=== PATIENT | female | born 1945 | race Caucasian/White ===

== ENCOUNTER 2017-02-21 18:55 | Inpatient (IN) | payer MEDICARE ==
[~2017-02-21] VITALS: Ht 165.1 cm; Wt 63.5 kg
[~2017-02-21 18:55] MED LIST: ASPIRIN81 MG PO; CATAPRES 0.1MG0.1 MG PO; COREG 12.5MG12.5 MG PO; COZAAR100 MG PO; DESYREL 50 MG T50 MG PO; NEURONTIN 100100 MG PO; NORVASC 5 MG TAB5 MG PO; PLAVIX 75 MG TA75 MG PO; PROCARDIA XL 6060 MG PO; PROTONIX 40 MG40 M1 PO; TRANDATE 300 M300 MG PO
[2017-02-21] MEDS ORDERED: SPIRIVA18 MCG INH (23:05)
[2017-02-21] MEDS ORDERED: FERROUS SULFAT325 M2 PO (23:06)
[2017-02-21] MEDS ORDERED: COZAAR100 MG PO (23:06)
[2017-02-21] MEDS ORDERED: AMLODIPINE BESY10 MG PO (23:07)
[2017-02-21] MEDS ORDERED: CALCIUM ACETAT667 M1 PO (23:07)
[2017-02-22 02:51] LABS: HEMOGLOBIN 8.8 gm/dl (12.3-15.3); RED BLOOD COUNT 3.01 M/UL (4.00-5.10); WHITE BLOOD COUNT 8.1 K/UL (4.5-11.0)
[2017-02-23 03:21] LABS: HEMOGLOBIN 9.1 gm/dl (12.3-15.3); RED BLOOD COUNT 3.16 M/UL (4.00-5.10)
[2017-02-23 03:23] LABS: WHITE BLOOD COUNT 10.9 K/UL (4.5-11.0)
[2017-02-24 04:29] LABS: HEMOGLOBIN 9.8 gm/dl (12.3-15.3); RED BLOOD COUNT 3.33 M/UL (4.00-5.10); WHITE BLOOD COUNT 9.7 K/UL (4.5-11.0)
[2017-02-26 05:36] LABS: HEMOGLOBIN 9.6 gm/dl (12.3-15.3); RED BLOOD COUNT 3.29 M/UL (4.00-5.10); WHITE BLOOD COUNT 15.8 K/UL (4.5-11.0)
[2017-02-27 05:42] LABS: HEMOGLOBIN 12.9 gm/dl (12.3-15.3); RED BLOOD COUNT 4.18 M/UL (4.00-5.10); WHITE BLOOD COUNT 11.1 K/UL (4.5-11.0)
[2017-02-28] MEDS ORDERED: MEDROL DOSEPAK 24 MG PO ×2 (17:03→17:07)
[2017-02-28] MEDS ORDERED: PHENERGAN 25 MG25 M1 PO (17:04)
[2017-02-28] MEDS ORDERED: COMBIVENT0.074 GM/I INH (17:04)
[2017-02-28] MEDS ORDERED: VENTOLIN/PROVE0.5 ML INH (17:04)
[2017-02-28] MEDS ORDERED: FLOVENT 440.088 GM/I INH (17:04)
[2017-02-28] MEDS ORDERED: NEPHROCAPS SOFTG1 MG PO (17:05)
[2017-02-28] MEDS ORDERED: HYDRALAZINE HCL50 MG PO (17:05)
[2017-02-28] MEDS ORDERED: ADVAIR 250-501 EACH INH (17:07)
[2017-02-28] MEDS ORDERED: ENSURE ORIGINA237 ML PO (17:07)
[2017-02-28] MEDS ORDERED: PROCRIT10000 UNIT INJ (17:17)
--- NOTE | 2017-03-01 10:25 | NUR ---
WE HAVE TRIED MULT TIMES TO CONTACT DAUGHTER GARRY WITH NO ANSWER OR RETURN CALL. WENDY WITH CASE MANAGEMENT HAS ALSO CALLED MULT TIMES AND LEFT MESSAGES WITH NO RETURN CALL. I HEARD THE PATIENT'S PHONE RINGING IN HER ROOM AND IT HAPPENED TO BE GARRY TRYING TO CALL THE PATIENT. WENDY AND I EXPLAINED TO HER THAT [employer] WAS DISCHARGED YESTERDAY AND WE NEEDED TO KNOW WHEN SHE COULD COME AND PICK HER UP. SHE SAID SHE WOULDN'T BE ABLE TO TAKE HER TO DIALYSIS TODAY AND SHE WOULDN'T BE ABLE TO PICK HER UP UNTIL LATER THIS AFTERNOON OR EVENING.
== END 2017-03-02 10:23 | disposition home or self-care (01) | DRG 291 ==
LOC: PROG CARE 18:55 → M/S 21:44 → PROG CARE 21:44 → M/S 02-24 19:00
PROVIDERS: Internal Medicine; Internal Medicine Nephrology; ADMIT Family Medicine
PROC: 5A1D60Z (ICD-10-PCS; principal; 2017-02-24)
DX: I13.2 Hypertensive heart and chronic kidney disease with heart failure and with stage 5 chronic kidney disease, or end stage renal disease (principal); I50.33 Acute on chronic diastolic (congestive) heart failure; N18.6 End stage renal disease; J44.1 Chronic obstructive pulmonary disease with (acute) exacerbation; J96.10 Chronic respiratory failure, unspecified whether with hypoxia or hypercapnia; I95.2 Hypotension due to drugs; E87.5 Hyperkalemia; E11.22 Type 2 diabetes mellitus with diabetic chronic kidney disease; E11.65 Type 2 diabetes mellitus with hyperglycemia; F17.210 Nicotine dependence, cigarettes, uncomplicated; Z91.14 Patient's other noncompliance with medication regimen; Z99.2 Dependence on renal dialysis; Z99.81 Dependence on supplemental oxygen; I73.9 Peripheral vascular disease, unspecified; Z95.820 Peripheral vascular angioplasty status with implants and grafts; I16.0 Hypertensive urgency; R07.9 Chest pain, unspecified; K94.29 Other complications of gastrostomy; Y83.3 Surgical operation with formation of external stoma as the cause of abnormal reaction of the patient, or of later complication, without mention of misadventure at the time of the procedure; Y92.009 Unspecified place in unspecified non-institutional (private) residence as the place of occurrence of the external cause; D63.1 Anemia in chronic kidney disease; R77.8 Other specified abnormalities of plasma proteins; I27.2 Other secondary pulmonary hypertension; R53.81 Other malaise; Z91.11 Patient's noncompliance with dietary regimen; Z79.82 Long term (current) use of aspirin; Z79.899 Other long term (current) drug therapy; Z86.39 Personal history of other endocrine, nutritional and metabolic disease
CPT/HCPCS: 36415; 71010; 80048; 82550; 82553; 84132; 84484; 85027; 90937; 94640; 94664; 97116; 97530; G0257; J0885; J1644; J1650; J2550; J2920; J7030; J7050; J7509